=== PATIENT | male | born 1970 | race Caucasian/White ===

== ENCOUNTER 2017-11-27 11:20 | Emergency (ER) | payer BC, SELFPAY ==
[2017-11-27] VITALS (44 sets, daily range): BP systolic 125–146; BP diastolic 67–104; PULSE 53–77; RESP 16–18; TEMP 36.6; O2SAT 93–98
--- NOTE | 2017-11-27 12:25 | W.ED.GENAD ---
Discharge Plan Disposition Patient Disposition: HOME Condition: Stable Discharge Details Chief Complaint: Chest Pain Clinical Impression: Chest pain Primary Care Provider: Mayra Morris ED Provider: Kimberly Caldera Home Meds and New Rx's Prescriptions: Continue fexofenadine-pseudoephedrine [Raquel-D 24 Hour] 1 EACH tablet extended release 24 hr 1 tab PO DAILY RF: 0 ibuprofen 200 MG tablet 1 tab PO PRN RF: 0 No Action lorazepam 0.5 mg tablet 0.5 mg PO BID PRN (Reason: anxiety) Qty: 20 RF: 0 Discharge Instructions Instructions: Chest Pain (ED) Additional Instructions: Please return immediately to the emergency department if you develop any new or worsening symptoms or if you become otherwise concerned. It is extremely important that you make an appointment to be seen in follow-up for this visit this week by your primary care doctor. Referrals: Mayra Morris, POWER SYSTEM DISPATCHER [Primary Care Provider] - Discharge Data Discharge Date/Time-TO BE ENTERED AT DEPARTURE: 11/27/17 18:25 Medical Decision Making MDM Narrative Medical decision making narrative: Pawel Perrin is a 47-year-old man without history of major medical problems preventing to the emergency department with chest pain at rest, not worse with exertion. On exam patient is very well and nontoxic-appearing. He has a benign cardiopulmonary exam. Concern for ACS versus PE versus GERD versus MSK vs other. Exam/history not consistent with aortic etiology. Chest pain is atypical for ACS. Plan for EKG, chest x-ray, screening labs, telemetry. Will monitor and reassess. Labs nondiagnostic. EKG okay. Chest x-ray okay. Patient reports chest pain 1 out of 10, declines further medication at this time. Plan for repeat troponin repeat EKG.. Repeat EKG unchanged. 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 Atypical for ACS given that he exerts himself without symptoms. Lengthy discussion with patient regarding return to emergency department precautions and importance of outpatient follow-up with his PCP and for stress test. Patient is amenable to the plan. Medical Records Medical records reviewed: Yes I reviewed the patient's medical records. Imaging Data Radiologic Study: Attestation: I personally reviewed and interpreted this imaging study as follows: Radiologist's impression: PA AND LATERAL CHEST: Comparison 07/05/13. The heart is normal in size. The lungs are clear. The mediastinal structures and pleura appear intact. CONCLUSION: Normal chest. Lab Data Lab results reviewed: Yes I reviewed the patient's lab results. Laboratory Tests Range/Units 11/27/17 11/27/17 11/27/17 13:05 13:05 13:05 WBC (4.4-10.8) k/cumm 6.75 RBC (4.50-6.00) m/cumm 5.03 Hgb (13.5-17.5) g/dL 15.2 Hct (40.0-50.0) % 44.4 MCV (80-95) fL 88.3 MCH (27.0-33.0) pg 30.2 MCHC (32.0-36.0) g/dL 34.2 RDW (11.8-14.1) % 13.0 Plt Count (130-400) x1000/uL 224 MPV (8.0-11.0) fL 9.7 Immature Gran % 0.1 Neutrophils % 74.0 Lymphocytes % 16.0 Monocytes % 9.5 Eosinophils % 0.3 Basophils % 0.1 Absolute Neutrophils (1.2-6.7) k/cumm 4.99 Absolute Lymphocytes (1.2-3.4) k/cumm 1.08 L Absolute Monocytes (0.11-0.7) k/cumm 0.64 Absolute Eosinophils (0.0-0.7) k/cumm 0.02 Absolute Basophils (0.0-0.2) k/cumm 0.01 D-Dimer (<500) ng/mlFEU 180 Sodium (136-145) mmol/L 137 Potassium (3.5-5.1) mmol/L 4.0 Chloride (98-107) mmol/L 103 Carbon Dioxide (21.0-32.0) mmol/L 31.6 Anion Gap (3-11) mmol/L 2.4 L BUN (7-18) mg/dL 19 H Creatinine (0.70-1.30) mg/dL 1.01 Estimated GFR/1.73 m2 (mL/min/1.73m2) >= 60.00 Glucose (70-100) mg/dL 106 H Calcium (8.5-10.1) mg/dL 9.0 Total Bilirubin (0.2-1.0) mg/dL 0.7 AST (15-37) U/L 22 ALT (12-78) U/L 31 Alkaline Phosphatase (46-116) U/L 64 Troponin I (0.00-0.06) ng/mL < 0.02 Total Protein (6.4-8.2) g/dL 7.5 Albumin (3.4-5.0) g/dL 4.0 Range/Units 11/27/17 16:39 WBC (4.4-10.8) k/cumm RBC (4.50-6.00) m/cumm Hgb (13.5-17.5) g/dL Hct (40.0-50.0) % MCV (80-95) fL MCH (27.0-33.0) pg MCHC (32.0-36.0) g/dL RDW (11.8-14.1) % Plt Count (130-400) x1000/uL MPV (8.0-11.0) fL Immature Gran % Neutrophils % Lymphocytes % Monocytes % Eosinophils % Basophils % Absolute Neutrophils (1.2-6.7) k/cumm Absolute Lymphocytes (1.2-3.4) k/cumm Absolute Monocytes (0.11-0.7) k/cumm Absolute Eosinophils (0.0-0.7) k/cumm Absolute Basophils (0.0-0.2) k/cumm D-Dimer (<500) ng/mlFEU Sodium (136-145) mmol/L Potassium (3.5-5.1) mmol/L Chloride (98-107) mmol/L Carbon Dioxide (21.0-32.0) mmol/L Anion Gap (3-11) mmol/L BUN (7-18) mg/dL Creatinine (0.70-1.30) mg/dL Estimated GFR/1.73 m2 (mL/min/1.73m2) Glucose (70-100) mg/dL Calcium (8.5-10.1) mg/dL Total Bilirubin (0.2-1.0) mg/dL AST (15-37) U/L ALT (12-78) U/L Alkaline Phosphatase (46-116) U/L Troponin I (0.00-0.06) ng/mL < 0.02 Total Protein (6.4-8.2) g/dL Albumin (3.4-5.0) g/dL ECG Data Attestation: I personally reviewed and interpreted this ECG (s) as follows: Interpretation: EKG shows sinus bradycardia at 53 with normal axis, no STEMI, nondiagnostic EKG EKG shows sinus bradycardia at 57 with normal axis, no STEMI, nondiagnostic EKG HPI - General Adult General Mode of arrival: ambulatory. Date/Time Provider Initiated Documentation: 11/27/17 12:25. Limitations to Documentation: no limitations. Information obtained by: RN notes reviewed and old records reviewed. HPI Narrative: Pawel Perrin is a 47-year-old man with out history of major medical problems presenting to the emergency department with chest pain. Patient reports that over the past few days he has had intermittent sharp left-sided chest pain. Patient reports that pain has been somewhat migratory, and initially seemed to start on the right side of his chest and has also been in his central chest. Patient reports that he does have left-sided chest pain currently at a level of 2 out of 10 there is no radiation. He denies any associated symptoms: There is no shortness of breath, cough, fever, other pain, nausea/vomiting/diarrhea, sweating, weakness, numbness, tingling. He feels otherwise in his usual state of health. He reports that he is under significant stress at work. He notes that he rode his bicycle for 10 miles yesterday and did not experience any chest pain during the bike ride. Related Data Home Medications Medication Instructions Recorded Confirmed fexofenadine-pseudoephedrine 1 tab PO DAILY 07/05/13 11/29/17 [Raquel-D 24 Hour] ibuprofen 1 tab PO PRN 07/05/13 11/29/17 lorazepam 0.5 mg tablet 0.5 mg PO BID PRN #20 tab 11/29/17 11/29/17 Previous Rx's Medication Instructions Recorded lorazepam 0.5 mg tablet 0.5 mg PO BID PRN #20 tab 11/29/17 Allergies Allergy/AdvReac Type Severity Reaction Status Date / Time No Known Allergies Allergy Unverified 11/29/17 13:14 General Stated Complaint: Chest Pain LEOBARDO: 2 Review of Systems Review of Systems Constitutional: denies fevers Eyes: denies eye pain ENT: denies facial pain, dental pain, sore throat Cardiovascular: Reports chest pain Respiratory: denies SOB, cough GI: denies abdominal pain, vomiting, diarrhea : denies flank pain MSK: denies back pain, neck pain, arthralgias, myalgias Skin: denies rash Neuro: denies headaches, lightheadedness, weakness PFSH Family History Father Essential hypertension Hyperlipidemia Grandfather Essential hypertension Hyperlipidemia Grandmother Essential hypertension Hyperlipidemia Mother No problems noted. Social History adopted: No Smoking/Tobacco Use Status: Former Tobacco Use alcohol intake: current alcohol intake frequency: a few times a week Alcohol type: beer, wine, hard liquor and other substance use type: does not use Exam Narrative Exam Narrative: Constitutional: well and [id number], pleasant, conversing normally HENT: head atraumatic, normocephalic normal inspection, mucous membranes moist Eyes: conjunctiva normal, sclera normal, pupils 3mm b/l Neck: no stridor, normal ROM, trachea midline Chest: normal inspection Resp: normal work of breathing, LCTAB Cardio: normal rate, normal rhythm, no murmur appreciated. chest Nontender to palpation. GI: abdomen soft, non-tender, non-distended Back: normal inspection, no rash Skin: warm, dry, normal color, no rash Neuro: alert, not altered, grossly non-focal, normal tone Ext: no edema Psych: normal mood, normal affect, normal behavior Course Vital Signs Temperature 36.6 C 11/27/17 12:04 Pulse 57 L 11/27/17 12:04 Respiratory Rate 16 11/27/17 12:04 Blood Pressure 146/69 H 11/27/17 12:04 Pulse Oximetry 95 11/27/17 12:04 Temperature 36.6 C 11/27/17 12:04 Pulse 56 L 11/27/17 12:24 Respiratory Rate 16 11/27/17 12:24 Blood Pressure 140/80 11/27/17 12:24 Pulse Oximetry 95 11/27/17 12:04
--- NOTE | 2017-11-27 12:34 | DI.RAD_ITS ---
SYMPTOMS/DIAGNOSIS: CHEST PAIN PA AND LATERAL CHEST: Comparison 07/05/13. The heart is normal in size. The lungs are clear. The mediastinal structures and pleura appear intact. CONCLUSION: Normal chest.
[2017-11-27 13:15] LABS: Abs Immature Grans 0.01 k/cumm (0.0-0.09); Absolute Basophil Count 0.01 k/cumm (0.0-0.2); Absolute Eosinophil Count 0.02 k/cumm (0.0-0.7); Absolute Lymphocyte Count 1.08 k/cumm (1.2-3.4); Absolute Monocyte Count 0.64 k/cumm (0.11-0.7); Absolute Neutrophil Count 4.99 k/cumm (1.2-6.7); Basophils % 0.1; Eosinophils % 0.3; HCT 44.4 % (40.0-50.0); HGB 15.2 g/dL (13.5-17.5); Immature Grans % 0.1; Mean Corp. HGB Concentration 34.2 g/dL (32.0-36.0); Mean Corpuscular Hemoglobin 30.2 pg (27.0-33.0); Mean Corpuscular Volume 88.3 fL (80-95); Mean Platelet Volume 9.7 fL (8.0-11.0); Monocytes % 9.5; Platelet Count 224 x1000/uL (130-400); RBC 5.03 m/cumm (4.50-6.00); White Blood Cell Count 6.75 k/cumm (4.4-10.8)
[2017-11-27 13:33] LABS: ALT 31 U/L (12-78); AST 22 U/L (15-37); Alkaline Phosphatase 64 U/L (46-116); Anion Gap 2.4 mmol/L (3-11); BUN 19 mg/dL (7-18); Bilirubin, Total 0.7 mg/dL (0.2-1.0); CO2 31.6 mmol/L (21.0-32.0); CREATININE 1.01 mg/dL (0.70-1.30); Chloride 103 mmol/L (98-107); Glucose 106 mg/dL (70-100); Sodium 137 mmol/L (136-145); Total Protein 7.5 g/dL (6.4-8.2)
[2017-11-27 13:42] LABS: Troponin I < 0.02 ng/mL (0.00-0.06)
[2017-11-27 13:45] LABS: D-Dimer 180 ng/mlFEU (<500)
[2017-11-27 17:09] LABS: Troponin I < 0.02 ng/mL (0.00-0.06)
--- NOTE | 2017-11-28 09:33 | PDOC.ERCMPRO ---
Care Management Progress Note 11/28/17-Pt seen on 11/27/[address] for chest pain by Dr. Perez pabon. f/u this week referral has been sent to [facility] as Augustus is the pt's PCP. Stress Test was ordered, as well.
--- NOTE | 2017-12-04 18:21 | ED.GENADUL_ITS ---
Discharge Plan Disposition Patient Disposition: HOME Condition: Stable Discharge Details Chief Complaint: Chest Pain Clinical Impression: Chest pain Primary Care Provider: Mayra Morris ED Provider: Kimberly Caldera Home Meds and New Rx's Prescriptions: Continue fexofenadine-pseudoephedrine [Raquel-D 24 Hour] 1 EACH tablet extended release 24 hr 1 tab PO DAILY RF: 0 ibuprofen 200 MG tablet 1 tab PO PRN RF: 0 No Action lorazepam 0.5 mg tablet 0.5 mg PO BID PRN (Reason: anxiety) Qty: 20 RF: 0 Discharge Instructions Instructions: Chest Pain (ED) Additional Instructions: Please return immediately to the emergency department if you develop any new or worsening symptoms or if you become otherwise concerned. It is extremely important that you make an appointment to be seen in follow-up for this visit this week by your primary care doctor. Referrals: Mayra Morris, GRINDING WHEEL FACER [Primary Care Provider] - Discharge Data Discharge Date/Time-TO BE ENTERED AT DEPARTURE: 11/27/17 18:25 Medical Decision Making MDM Narrative Medical decision making narrative: Pawle Perrin is a 47-year-old man without history of major medical problems preventing to the emergency department with chest pain at rest, not worse with exertion. On exam patient is very well and nontoxic-appearing. He has a benign cardiopulmonary exam. Concern for ACS versus PE versus GERD versus MSK vs other. Exam/history not consistent with aortic etiology. Chest pain is atypical for ACS. Plan for EKG, chest x-ray, screening labs, telemetry. Will monitor and reassess. Labs nondiagnostic. EKG okay. Chest x-ray okay. Patient reports chest pain 1 out of 10, declines further medication at this time. Plan for repeat troponin repeat EKG.. Repeat EKG unchanged. 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 Atypical for ACS given that he exerts himself without symptoms. Lengthy discussion with patient regarding return to emergency department precautions and importance of outpatient follow-up with his PCP and for stress test. Patient is amenable to the plan. Medical Records Medical records reviewed: Yes I reviewed the patient's medical records. Imaging Data Radiologic Study: Attestation: I personally reviewed and interpreted this imaging study as follows: Radiologist's impression: PA AND LATERAL CHEST: Comparison 07/05/13. The heart is normal in size. The lungs are clear. The mediastinal structures and pleura appear intact. CONCLUSION: Normal chest. Lab Data Lab results reviewed: Yes I reviewed the patient's lab results. Laboratory Tests Range/Units 11/27/17 11/27/17 11/27/17 13:05 13:05 13:05 WBC (4.4-10.8) k/cumm 6.75 RBC (4.50-6.00) m/cumm 5.03 Hgb (13.5-17.5) g/dL 15.2 Hct (40.0-50.0) % 44.4 MCV (80-95) fL 88.3 MCH (27.0-33.0) pg 30.2 MCHC (32.0-36.0) g/dL 34.2 RDW (11.8-14.1) % 13.0 Plt Count (130-400) x1000/uL 224 MPV (8.0-11.0) fL 9.7 Immature Gran % 0.1 Neutrophils % 74.0 Lymphocytes % 16.0 Monocytes % 9.5 Eosinophils % 0.3 Basophils % 0.1 Absolute Neutrophils (1.2-6.7) k/cumm 4.99 Absolute Lymphocytes (1.2-3.4) k/cumm 1.08 L Absolute Monocytes (0.11-0.7) k/cumm 0.64 Absolute Eosinophils (0.0-0.7) k/cumm 0.02 Absolute Basophils (0.0-0.2) k/cumm 0.01 D-Dimer (<500) ng/mlFEU 180 Sodium (136-145) mmol/L 137 Potassium (3.5-5.1) mmol/L 4.0 Chloride (98-107) mmol/L 103 Carbon Dioxide (21.0-32.0) mmol/L 31.6 Anion Gap (3-11) mmol/L 2.4 L BUN (7-18) mg/dL 19 H Creatinine (0.70-1.30) mg/dL 1.01 Estimated GFR/1.73 m2 (mL/min/1.73m2) >= 60.00 Glucose (70-100) mg/dL 106 H Calcium (8.5-10.1) mg/dL 9.0 Total Bilirubin (0.2-1.0) mg/dL 0.7 AST (15-37) U/L 22 ALT (12-78) U/L 31 Alkaline Phosphatase (46-116) U/L 64 Troponin I (0.00-0.06) ng/mL < 0.02 Total Protein (6.4-8.2) g/dL 7.5 Albumin (3.4-5.0) g/dL 4.0 Range/Units 11/27/17 16:39 WBC (4.4-10.8) k/cumm RBC (4.50-6.00) m/cumm Hgb (13.5-17.5) g/dL Hct (40.0-50.0) % MCV (80-95) fL MCH (27.0-33.0) pg MCHC (32.0-36.0) g/dL RDW (11.8-14.1) % Plt Count (130-400) x1000/uL MPV (8.0-11.0) fL Immature Gran % Neutrophils % Lymphocytes % Monocytes % Eosinophils % Basophils % Absolute Neutrophils (1.2-6.7) k/cumm Absolute Lymphocytes (1.2-3.4) k/cumm Absolute Monocytes (0.11-0.7) k/cumm Absolute Eosinophils (0.0-0.7) k/cumm Absolute Basophils (0.0-0.2) k/cumm D-Dimer (<500) ng/mlFEU Sodium (136-145) mmol/L Potassium (3.5-5.1) mmol/L Chloride (98-107) mmol/L Carbon Dioxide (21.0-32.0) mmol/L Anion Gap (3-11) mmol/L BUN (7-18) mg/dL Creatinine (0.70-1.30) mg/dL Estimated GFR/1.73 m2 (mL/min/1.73m2) Glucose (70-100) mg/dL Calcium (8.5-10.1) mg/dL Total Bilirubin (0.2-1.0) mg/dL AST (15-37) U/L ALT (12-78) U/L Alkaline Phosphatase (46-116) U/L Troponin I (0.00-0.06) ng/mL < 0.02 Total Protein (6.4-8.2) g/dL Albumin (3.4-5.0) g/dL ECG Data Attestation: I personally reviewed and interpreted this ECG (s) as follows: Interpretation: EKG shows sinus bradycardia at 53 with normal axis, no STEMI, nondiagnostic EKG EKG shows sinus bradycardia at 57 with normal axis, no STEMI, nondiagnostic EKG HPI - General Adult General Mode of arrival: ambulatory . Date/Time Provider Initiated Documentation: 11/27/17 12:25 . Limitations to Documentation: no limitations . Information obtained by: RN notes reviewed and old records reviewed . HPI Narrative: Pawel Perrin is a 47-year-old man with out history of major medical problems presenting to the emergency department with chest pain. Patient reports that over the past few days he has had intermittent sharp left- sided chest pain. Patient reports that pain has been somewhat migratory, and initially seemed to start on the right side of his chest and has also been in his central chest. Patient reports that he does have left-sided chest pain currently at a level of 2 out of 10 there is no radiation. He denies any associated symptoms: There is no shortness of breath, cough, fever, other pain, nausea/vomiting/diarrhea, sweating, weakness, numbness, tingling. He feels otherwise in his usual state of health. He reports that he is under significant stress at work. He notes that he rode his bicycle for 10 miles yesterday and did not experience any chest pain during the bike ride. Related Data Home Medications Medication Instructions Recorded Confirmed fexofenadine-pseudoephedrine 1 tab PO DAILY 07/05/13 11/29/17 [Raquel-D 24 Hour] ibuprofen 1 tab PO PRN 07/05/13 11/29/17 lorazepam 0.5 mg tablet 0.5 mg PO BID PRN #20 tab 11/29/17 11/29/17 Previous Rx's Medication Instructions Recorded lorazepam 0.5 mg tablet 0.5 mg PO BID PRN #20 tab 11/29/17 Allergies Allergy/AdvReac Type Severity Reaction Status Date / Time No Known Allergies Allergy Unverified 11/29/17 13:14 General Stated Complaint: Chest Pain LEOBARDO: 2 Review of Systems Review of Systems Constitutional: denies fevers Eyes: denies eye pain ENT: denies facial pain, dental pain, sore throat Cardiovascular: Reports chest pain Respiratory: denies SOB, cough GI: denies abdominal pain, vomiting, diarrhea : denies flank pain MSK: denies back pain, neck pain, arthralgias, myalgias Skin: denies rash Neuro: denies headaches, lightheadedness, weakness PFSH Family History Father Essential hypertension Hyperlipidemia Grandfather Essential hypertension Hyperlipidemia Grandmother Essential hypertension Hyperlipidemia Mother No problems noted. Social History adopted: No Smoking/Tobacco Use Status: Former Tobacco Use alcohol intake: current alcohol intake frequency: a few times a week Alcohol type: beer, wine, hard liquor and other substance use type: does not use Exam Narrative Exam Narrative: Constitutional: well and [id number], pleasant, conversing normally HENT: head atraumatic, normocephalic normal inspection, mucous membranes moist Eyes: conjunctiva normal, sclera normal, pupils 3mm b/l Neck: no stridor, normal ROM, trachea midline Chest: normal inspection Resp: normal work of breathing, LCTAB Cardio: normal rate, normal rhythm, no murmur appreciated. chest Nontender to palpation. GI: abdomen soft, non-tender, non-distended Back: normal inspection, no rash Skin: warm, dry, normal color, no rash Neuro: alert, not altered, grossly non-focal, normal tone Ext: no edema Psych: normal mood, normal affect, normal behavior Course Vital Signs Temperature 36.6 C 11/27/17 12:04 Pulse 57 L 11/27/17 12:04 Respiratory Rate 16 11/27/17 12:04 Blood Pressure 146/69 H 11/27/17 12:04 Pulse Oximetry 95 11/27/17 12:04 Temperature 36.6 C 11/27/17 12:04 Pulse 56 L 11/27/17 12:24 Respiratory Rate 16 11/27/17 12:24 Blood Pressure 140/80 11/27/17 12:24 Pulse Oximetry 95 11/27/17 12:04
== END 2017-11-27 18:25 | disposition home or self-care (01) ==
PROVIDERS: Emergency Provider Student in an Organized Health Care Education/Training Program; PCP Nurse Practitioner
DX: R07.9 Chest pain, unspecified (principal)
CPT/HCPCS: 36415; 80053; 93005; 99284; 71046; 84484; 85025; 85379; 93010

== ENCOUNTER 2017-12-01 00:07 | Outpatient (CLI) | payer BC, SELFPAY ==
--- NOTE | 2017-12-01 09:30 | ETT_ITS ---
*[facility]* *[facility]* [address] [place] [address] Stress Electrocardiography Maxwell protocol Date of study: 12/01/2017 *PATIENT PRESENTATION* Height: 180.3cm (71in) Blood Pressure: Weight: 102.3kg (225lb) BSA: 2.29m^2 Ordering physician: Lisandro Caldera Impressions: Normal study after maximal exercise. Summary: 1. Stress ECG conclusions: The stress ECG is negative. 2. Stress: The target heart rate was achieved. There is a normal resting blood pressure with a hypertensive response to stress. Exercise capacity is above normal for age. Indication: R07.9. History: Patient's presenting symptoms: asymptomatic. Patient's presenting symptoms: asymptomatic. REASON FOR VISIT: PATIENT PRESENTED TO EMERGENCY ROOM ON 11/27/17 WITH 3/10 DULL LEFT SIDED CHEST PAIN, OCCASIONALLY RADIATING TO THE RIGHT. CHEST PAIN HAD BEEN CONSTANT OVER THREE DAYS BEFORE PRESENTING TO THE EMERGENCY ROOM, AND HAS BEEN OCCURING INTERMITTENLY OVER THE PAST WEEK. LAST EPISODE OF CHEST PAIN ON MONDAY. PATIENT REPORTS THAT TAKING TUMS SEEMS TO HELP WITH THE PAIN. PATIENT HAS HAD SEVERE STRESS RECENTLY DUE TO HIS JOB. PAST MEDICAL HISTORY: NO MEDICAL HISTORY. FAMILY HISTORY: FATHER - HYPERTENSION. SMOKING STATUS: 1PPD HISTORY FOR 15 YEARS. QUIT IN 2000. 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 ALLERGIES: NO KNOWN ALLERGIES. MEDICATIONS: FEXOFENADINE-PSEUDOEPHEDRINE 1 TAB, DAILY. LORAZEPAM 0.5 MG, BID PRN. Protocol: Maxwell protocol. Baseline ECG: SINUS RHYTHM. HEART RATE 64 BPM. Stress protocol: + +---+ + !Stage !HR !BP (mmHg) ! + +---+ + !Baseline supine !64 !144/82 (103) ! + +---+ + !Baseline standing !74 !138/88 (105) ! + +---+ + !Stage I; 1.7mph, 10degrees; 3 min !92 !182/94 (123) ! + +---+ + !Stage II; 2.5mph, 12degrees; 3 min !105!210/114 (146)! + +---+ + !Stage III; 3.4mph, 14degrees; 3 min!121!212/120 (151)! + +---+ + !Stage IV; 4.2mph, 16degrees; 3 min !136!220/128 (159)! + +---+ + !Stage V; 5mph, 18degrees; 3 min !158!230/128 (162)! + +---+ + !Peak stress !160! ! + +---+ + !Recovery; 1 min !141!138/62 (87) ! + +---+ + !Recovery; 3 min !109!190/74 (113) ! + +---+ + !Recovery; 6 min !92 !132/70 (91) ! + +---+ + * Stress results: Maximal heart rate during stress was 160bpm (94% of maximal predicted heart rate). The maximal predicted heart rate was 171bpm. The target heart rate was achieved. There is a normal resting blood pressure with a hypertensive response to stress. The rate-pressure product for the peak heart rate and blood pressure was 99469hw Hg/min. Exercise capacity is above normal for age. Stress ECG: TREADMILL PORTION OF EXERCISE STRESS TEST ENDED IN 15MIN 10SEC DUE TO PATIENT FATIGUE. APPROPRIATE HEART RATE AND BLOOD PRESSURE RESPONSE TO EXERCISE. INITIAL HYPOTENSIVE RESPONSE TO CESSATION OF EXERCISE, ASYMPTOMATIC. MAX HEART RATE 160BPM, 93% OF TARGET. APPROXIMATE METS ACHIEVED 15.01. NO ANGINA REPORTED. NO ECTOPY NOTED. UPWARD SLOPING ST SEGMENT DEPRESSION NOTED IN LEADS V3 AND V4 STARTING IN MINUTE THREE OF EXERCISE, RESOLVING WITH RECOVERY. ABOVE AVERAGE FUNCTIONAL CAPACITY. The stress ECG is negative. Study data: Damion Barrera MD supervised and was readily available during the procedure. This study was interpreted by [facility]. Study status: Routine. Consent: The risks, benefits, and alternatives to the procedure were explained to the patient and informed consent was obtained. Procedure: Initial setup. A baseline ECG was recorded. Surface ECG leads and manual cuff blood pressure measurements were monitored. Heart sounds: Normal. Lung sounds: Normal. Treadmill exercise testing was performed using the Maxwell protocol. Study completion: The patient tolerated the procedure well and was discharged from the lab. Discharge: The patient left the laboratory in stable condition. Birthdate: Patient birthdate: 1970. Sex: Gender: male. Study date: Study date: 12/01/2017. Study time: 09:30 AM. Signature Documentation: The Stress ECG portion of this study was interpreted by Damion Barrera MD. Electronically signed by Damion Barrera 12/01/2017 16:24
== END 2017-12-01 00:27 ==
PROVIDERS: PCP Nurse Practitioner; Visit Provider Student in an Organized Health Care Education/Training Program
DX: R07.9 Chest pain, unspecified (principal); Z87.891 Personal history of nicotine dependence
CPT/HCPCS: 93017

== ENCOUNTER 2017-12-20 01:12 | Outpatient (CLI) | payer BC, SELFPAY ==
[2017-12-20 10:03] LABS: Cholesterol 173 mg/dL (50-200); HDL Cholesterol 67 mg/dL (40-60); LDL CHOLESTEROL 67 mg/dL (<100); Triglyceride 115 mg/dL (30-150)
== END 2017-12-20 01:32 ==
PROVIDERS: PCP Nurse Practitioner; Visit Provider Nurse Practitioner
DX: Z13.220 Encounter for screening for lipoid disorders (principal)
CPT/HCPCS: 36415; 80061; 83721

== ENCOUNTER 2020-01-23 08:35 | Outpatient (CLI) | payer SELFPAY ==
[2020-01-27 13:57] LABS: Patient Race White; SARS-CoV-2 RNA Undetected (Undetected); SARS-CoV-2 Specimen Source Nasal
== END 2020-01-23 08:55 ==
PROVIDERS: PCP Nurse Practitioner; Visit Provider Nurse Practitioner
DX: R19.7 Diarrhea, unspecified (principal); Z20.828 Contact with and (suspected) exposure to other viral communicable diseases
CPT/HCPCS: U0003

== ENCOUNTER 2020-05-26 02:47 | Outpatient (CLI) | payer OTHER, SELFPAY ==
[2020-05-26 07:39] LABS: HCT 44.6 % (40.0-50.0); HGB 14.9 g/dL (13.5-17.5); MCHC 33.4 % (32.0-36.0); MCV 89.7 fL (80-95); MPV 9.7 fL (8.0-11.0); Platelet Count 225 10^3/uL (130-400); RBC 4.97 10^6/uL (4.36-5.78); RDW 12.3 % (11.8-14.1); RDW-SD 40.5 fL; WBC 4.65 10^3/uL (4.4-10.8)
[2020-05-26 09:40] LABS: ALT 31 U/L (16-63); AST 22 U/L (15-37); Alkaline Phosphatase 67 U/L (46-116); Anion Gap 9.5 mmol/L (3-11); BUN 19 mg/dL (7-18); Bilirubin, Total 0.5 mg/dL (0.2-1.0); CO2 26.5 mmol/L (21.0-32.0); Calculated LDL 150 mg/dL (<100); Chloride 104 mmol/L (98-107); Cholesterol 266 mg/dL (<200); Glucose 101 mg/dL (74-106); HDL Cholesterol 53 mg/dL (40-60); Potassium 4.5 mmol/L (3.5-5.1); Sodium 140 mmol/L (136-145); Total Protein 7.2 g/dL (6.4-8.2); Triglyceride 315 mg/dL (<150)
== END 2020-05-26 02:48 | disposition home or self-care (01) ==
LOC: LBO 02:47
PROVIDERS: PCP Nurse Practitioner; Visit Provider Nurse Practitioner
DX: I10 Essential (primary) hypertension (principal); Z13.220 Encounter for screening for lipoid disorders
CPT/HCPCS: 36415; 80053; 80061; 85027

== ENCOUNTER 2021-01-22 09:24 | Emergency (ER) | payer OTHER, SELFPAY ==
[2021-01-22] VITALS (39 sets, daily range): BP systolic 134–158; BP diastolic 70–93; PULSE 52–67; RESP 16–25; TEMP 36.4; O2SAT 96–100
--- NOTE | 2021-01-22 09:15 | RT.EKG_ITS ---
APPROVED REPORT Exam: Resting ECG Reason for Exam: chest pain Patient Location: E HR:67 bpm ECG Measurements Heart Rate 67 AXIS FL 207 P 56 QRSd 111 QRS 37 QT 413 T 21 QTc 435 Conclusion Sinus rhythm...normal P axis, V-rate 60- 99 Borderline prolonged FL interval...FL >202, V-rate 50- 90 sinus rhythm at 67, normal axis, no acute ischemic changes, no STEMI, nondiagnostic EKG
[2021-01-22 10:45] LABS: Abs Immature Grans 0.01 10^3/uL (0.0-0.06); Absolute Basophil Count 0.02 10^3/uL (0.0-0.2); Absolute Eosinophil Count 0.03 10^3/uL (0.0-0.7); Absolute Lymphocyte Count 1.84 10^3/uL (1.2-3.4); Absolute Monocyte Count 0.71 10^3/uL (0.1-0.8); Absolute Neutrophil Count 3.72 10^3/uL (1.2-6.7); Basophils % 0.3; Eosinophils % 0.5; HCT 45.2 % (40.0-50.0); HGB 15.3 g/dL (13.5-17.5); Immature Grans % 0.2; Lymphocytes % 29.1; MCH 29.9 pg (27.0-33.0); MCHC 33.8 % (32.0-36.0); MCV 88.5 fL (80-95); MPV 10.3 fL (8.0-11.0); Monocytes % 11.2; Neutrophils % 58.7; Nucleated RBC 0 %; Platelet Count 251 10^3/uL (130-400); RBC 5.11 10^6/uL (4.36-5.78); RDW 12.2 % (11.8-14.1); RDW-SD 39.8 fL; WBC 6.33 10^3/uL (4.4-10.8)
--- NOTE | 2021-01-22 10:59 | DI.RAD_ITS ---
Exam(s) XR PORTABLE CHEST AP EXAM: XR PORTABLE CHEST AP CLINICAL HISTORY: chest pain. TECHNIQUE: 2D digital imaging was performed. COMPARISON: CR XR CHEST 2V PA LATERAL from 11/27/2017 FINDINGS: LUNGS: Clear. No pleural abnormality seen. HEART: Normal. MEDIASTINUM: Normal. OTHER FINDINGS: None. IMPRESSION: No acute pulmonary findings. DATA REPOSITORY: RADIATION DOSE DELIVERED: Total DLP
[2021-01-22 11:06] LABS: Calcium 8.9 mg/dL (8.5-10.1); Glucose 101 mg/dL (74-106)
[2021-01-22 11:07] LABS: Albumin 4.3 g/dL (3.4-5.0); Alkaline Phosphatase 77 U/L (46-116); Anion Gap 5.4 mmol/L (3-11); BUN 21 mg/dL (7-18); Bilirubin, Total 0.5 mg/dL (0.2-1.0); CO2 29.6 mmol/L (21.0-32.0); Chloride 104 mmol/L (98-107); Sodium 139 mmol/L (136-145); Total Protein 7.9 g/dL (6.4-8.2)
[2021-01-22 11:08] LABS: ALT 30 U/L (16-63); AST 29 U/L (15-37); Magnesium 2.4 mg/dL (1.8-2.4); Troponin I < 0.05 ng/mL (<0.06)
[2021-01-22 11:43] LABS: D-Dimer 263 ng/mlFEU (<500)
--- NOTE | 2021-01-22 12:30 | RT.EKG_ITS ---
APPROVED REPORT Exam: Resting ECG Reason for Exam: Chest pain Patient Location: E HR:55 bpm ECG Measurements Heart Rate 55 AXIS FL 214 P 67 QRSd 110 QRS 43 QT 432 T 19 QTc 413 Conclusion Sinus bradycardia...rate< 60 Prolonged FL interval...FL >210, V-rate 50- 90 sinus bradycardia at 55, 1st degree block, normal axis, no acute ischemic changes, no STEMI, nondiagn ostic EKG
[2021-01-22 13:25] LABS: Troponin I < 0.05 ng/mL (<0.06)
--- NOTE | 2021-01-22 14:04 | NUR.NOTE ---
Nursing Note: Referral faxed to Radiology for exercise stress test for chest pain. Referral faxed to [facility] Cardiology for chest pain in 1 to 2 weeks. Kelli Nathan
--- NOTE | 2021-01-22 16:15 | ED.GENADUL_ITS ---
Discharge Plan Disposition Patient Disposition: HOME Condition: Stable Discharge Details Clinical Impression: Chest pain Primary Care Provider: Mayra Morris ED Provider: Kimberly Caldera Home Meds and New Rx's Prescriptions: Continued ibuprofen 200 MG tablet 1 tab PO PRN RF: 0 No Action atorvastatin 10 mg tablet 10 mg PO DAILY Qty: 90 RF: 1 Discharge Instructions Instructions: Chest Pain (ED) Additional Instructions: Please return immediately to the emergency department if you develop any new or worsening symptoms, if your condition does not improve as expected, or if you become otherwise concerned. It is extremely important that you call soon as possible to make an appointment to be seen in follow-up for this visit by your primary care doctor and a laborer mine as we discussed. It is also extremely important that you undego stress testing as we discussed, you will be called to schedule this. Referrals: Yamileth Streeter MD [ [facility] STAFF PHYSICIAN] - Mayra Morris NP [Primary Care Provider] - Discharge Data Discharge Date/Time-TO BE ENTERED AT DEPARTURE: 01/22/21 14:02 Medical Decision Making Pawel Perrin is a 51 y/o man with h/o HLD who presented to the emergency department with intermittent left chest pain over the past few days, non- exertional. On exam Pt is well and non-toxic appearing. Benign cardiopulmonary exam. Normal examination of the left shoulder and left arm. Concern for possible ACS vs msk pain vs other, doubt PE. Exam/hx at this time not c/w acute aortic pathology, septic arthritis, UE DVT, acute emergent intra-abdominal process. EKG non-diagnostic. Plan for screening labs, IV placement, telemetry, CXR. Will monitor and reassess. Plan for repeat trop and ekg if initial w/u neg. Labs reviewed. Normal WBC, trop neg, d-dimer neg. CXR negative for acute process. Pt states that he is pain free and feels well. Repeat trop neg and repeat EKG shows no major change. Pt low risk by HEART score. Plan for outpt stress test, outpt f/u. Stress test ordered by me. I had a lengthy discussion with Patient regarding return to emergency department precautions, home care, and importance of outpatient follow-up. Pt verbalizes understanding of the plan and is amenable. Patient discharged to home with clear plan for outpatient follow-up. All questions were answered. Disposition decision was made weighing the risks and benefits of hospitalization versus outpatient treatment, the risk for further decompensation, and the patient's wishes. Medical Records Medical records reviewed: Yes I reviewed the patient's medical records. Imaging Data Radiologic Study: Attestation: I personally reviewed and interpreted this imaging study as follows: Radiologist's impression: EXAM: XR PORTABLE CHEST AP CLINICAL HISTORY: chest pain. TECHNIQUE: 2D digital imaging was performed. COMPARISON: CR XR CHEST 2V PA LATERAL from 11/27/2017 FINDINGS: LUNGS: Clear. No pleural abnormality seen. HEART: Normal. MEDIASTINUM: Normal. OTHER FINDINGS: None. IMPRESSION: No acute pulmonary findings. Lab Data Lab results reviewed: Yes I reviewed the patient's lab results. Labs: Laboratory Tests Range/Units 01/22/21 01/22/21 01/22/21 09:34 09:34 09:34 WBC (4.4-10.8) 10^3/uL 6.33 RBC (4.36-5.78) 10^6/uL 5.11 Hgb (13.5-17.5) g/dL 15.3 Hct (40.0-50.0) % 45.2 MCV (80-95) fL 88.5 MCH (27.0-33.0) pg 29.9 MCHC (32.0-36.0) % 33.8 RDW (11.8-14.1) % 12.2 Plt Count (130-400) 10^3/uL 251 MPV (8.0-11.0) fL 10.3 Immature Gran % 0.2 Neutrophils % 58.7 Lymphocytes % 29.1 Monocytes % 11.2 Eosinophils % 0.5 Basophils % 0.3 Nucleated RBC % % 0 Absolute Neutrophils (1.2-6.7) 10^3/uL 3.72 Absolute Lymphocytes (1.2-3.4) 10^3/uL 1.84 Absolute Monocytes (0.1-0.8) 10^3/uL 0.71 Absolute Eosinophils (0.0-0.7) 10^3/uL 0.03 Absolute Basophils (0.0-0.2) 10^3/uL 0.02 D-Dimer (<500) ng/mlFEU 263 Sodium (136-145) mmol/L 139 Potassium (3.5-5.1) mmol/L 4.0 Chloride (98-107) mmol/L 104 Carbon Dioxide (21.0-32.0) mmol/L 29.6 Anion Gap (3-11) mmol/L 5.4 BUN (7-18) mg/dL 21 H Creatinine (0.70-1.30) mg/dL 1.0 Estimated GFR/1.73 m2 (mL/min/1.73m2) >= 60.00 Glucose (74-106) mg/dL 101 Calcium (8.5-10.1) mg/dL 8.9 Magnesium (1.8-2.4) mg/dL 2.4 Total Bilirubin (0.2-1.0) mg/dL 0.5 AST (15-37) U/L 29 ALT (16-63) U/L 30 Alkaline Phosphatase (46-116) U/L 77 Troponin I (<0.06) ng/mL < 0.05 Total Protein (6.4-8.2) g/dL 7.9 Albumin (3.4-5.0) g/dL 4.3 Range/Units 01/22/21 12:40 WBC (4.4-10.8) 10^3/uL RBC (4.36-5.78) 10^6/uL Hgb (13.5-17.5) g/dL Hct (40.0-50.0) % MCV (80-95) fL MCH (27.0-33.0) pg MCHC (32.0-36.0) % RDW (11.8-14.1) % Plt Count (130-400) 10^3/uL MPV (8.0-11.0) fL Immature Gran % Neutrophils % Lymphocytes % Monocytes % Eosinophils % Basophils % Nucleated RBC % % Absolute Neutrophils (1.2-6.7) 10^3/uL Absolute Lymphocytes (1.2-3.4) 10^3/uL Absolute Monocytes (0.1-0.8) 10^3/uL Absolute Eosinophils (0.0-0.7) 10^3/uL Absolute Basophils (0.0-0.2) 10^3/uL D-Dimer (<500) ng/mlFEU Sodium (136-145) mmol/L Potassium (3.5-5.1) mmol/L Chloride (98-107) mmol/L Carbon Dioxide (21.0-32.0) mmol/L Anion Gap (3-11) mmol/L BUN (7-18) mg/dL Creatinine (0.70-1.30) mg/dL Estimated GFR/1.73 m2 (mL/min/1.73m2) Glucose (74-106) mg/dL Calcium (8.5-10.1) mg/dL Magnesium (1.8-2.4) mg/dL Total Bilirubin (0.2-1.0) mg/dL AST (15-37) U/L ALT (16-63) U/L Alkaline Phosphatase (46-116) U/L Troponin I (<0.06) ng/mL < 0.05 Total Protein (6.4-8.2) g/dL Albumin (3.4-5.0) g/dL ECG Data Attestation: I personally reviewed and interpreted this ECG (s) as follows: Interpretation: EKG shows normal sinus rhythm at 67, borderline first-degree block, normal axis, no acute ischemic changes, no STEMI, nondiagnostic EKG EKG shows sinus bradycardia at 55, first-degree block, normal axis, no acute ischemic changes, no STEMI, nondiagnostic EKG HPI General Mode of arrival: ambulatory . Date/Time Provider Initiated Documentation: 01/22/21 10:01 . Limitations to Documentation: no limitations . Information obtained by: patient, RN notes reviewed and old records reviewed . HPI Narrative: Pawel Perrin is a 51 y/o man with h/o HLD presenting to the emergency department with chest pain. Pt reports that he has had dull left upper chest pain radiating into left shoulder intermittently over the past 2-3 days. Pt reports that he is very active, uses [employer] and rowing machine on daily basis in addition to weight lifting, has continued to exercise since pain began, has had no chest pain during exercise. No recent trauma, no known inciting fac tors, non-pleuritic, non-positional. No change with left arm movement. Pt reports that as he had history of HLD he felt he should get checked. Rates current pain 1 out of 10. He denies any other pain, cough, SOB, vomiting, diarrhea, numbness, weakness, rash, swelling. Pt reports that he feels otherwise in his usual state of health. Has been eating and drinking as usual. Related Data Home Medications Medication Instructions Recorded Confirmed ibuprofen 1 tab PO PRN 07/05/13 01/22/21 atorvastatin 10 mg tablet 10 mg PO DAILY #90 tab 01/27/21 Previous Rx's Medication Instructions Recorded atorvastatin 10 mg tablet 10 mg PO DAILY #90 tab 01/27/21 Allergies Allergy/AdvReac Type Severity Reaction Status Date / Time No Known Allergies Allergy Unverified 01/22/21 09:36 General Stated Complaint: Chest Pain LEOBARDO: 2 Review of Systems Narrative: Constitutional: denies fevers Eyes: denies eye pain ENT: denies ear pain, dental pain, sore throat Cardiovascular: denies edema, reports chest pain Respiratory: denies SOB, cough GI: denies abdominal pain, vomiting, diarrhea : denies flank pain MSK: denies back pain, neck pain, arthralgias, myalgias Skin: denies rash Neuro: denies headaches, numbness, weakness [facility] Active Problem List (Updated 01/22/21 @ 13:50 by Kimberly Caldera MD) Chest pain (Acute) Abnormal auditory perception (Acute) Sensorineural hearing loss (SNHL) of left ear with unrestricted hearing of right ear (Acute) Tinnitus (Acute) Hyperlipidemia (Acute) Impacted cerumen of left ear (Acute) Elevated blood pressure reading in office with diagnosis of hypertension (Acute) Screening for cholesterol level (Acute) Travel within last 14 days (Acute) Diarrhea (Acute) Family History Father Essential hypertension Hyperlipidemia Grandfather Essential hypertension Hyperlipidemia Grandmother Essential hypertension Hyperlipidemia Mother No problems noted. Social History Smoking/Tobacco Use Status: Former Tobacco Use Tobacco: How many years used: 15 Smoking risk assessment performed?: Yes Alcohol Intake: current Alcohol Intake frequency: a few times a week Alcohol type: beer, wine, hard liquor and other Drug use: Never Substance use type: does not use Adopted: No Household members: spouse Housing: house Pets and animals: Yes Pets and animals: dog(s) Do you think of yourself as: straight/heterosexual Current gender identity: male What is your relationship status?: Panel score (0-1 are the most socially isolated patients): 1 What type of physical activity do you participate in: regular exercise, weight lifting and resistance training Duration: 45-60 minutes/day Frequency: 5-6 times per week Do you feel safe at home: Yes Exam Narrative Exam Narrative: Constitutional: well and [id number], pleasant, conversing normally HENT: head atraumatic/normocephalic/normal inspection, mucous membranes moist Eyes: conjunctiva normal, sclera normal, pupils 3mm b/l Neck: no stridor, normal ROM, trachea midline Chest: normal inspection, no TTP of the left chest Resp: normal work of breathing, LCTAB Cardio: normal rate, normal rhythm, no murmur appreciated GI: abdomen soft, non-tender, non-distended Back: normal inspection, no rash Skin: warm, dry, normal color, no rash Neuro: alert, not altered, grossly non-focal, normal tone Ext: no edema, no posterior calf TTP, no TTP of the left shoulder, full painless ROM left shoulder, radial pulses intact and symmetric Psych: normal mood, normal affect, normal behavior Course Vital Signs Vital signs: Vital Signs Temperature 36.4 C L 01/22/21 09:32 Pulse 64 01/22/21 09:32 Respiratory Rate 16 01/22/21 09:32 Pulse Oximetry 97 01/22/21 09:32 Temperature 36.4 C L 01/22/21 09:32 Temperature Source Skin 01/22/21 09:32 Pulse 53 L 01/22/21 13:31 Pulse 54 L 01/22/21 13:50 Respiratory Rate 23 01/22/21 13:50 Respiratory Effort 01/22/21 09:37 Respiratory Depth Normal 01/22/21 09:37 Respiratory Pattern Normal 01/22/21 09:37 Blood Pressure 134/76 01/22/21 13:31 Blood Pressure Mean 90 01/22/21 13:31 Blood Pressure Position Supine 01/22/21 09:32 Pulse Oximetry 98 01/22/21 13:50 Oxygen Delivery Method Room Air 01/22/21 09:32 Oxygen Flow Rate 0 01/22/21 09:32 Pain Level 1 01/22/21 09:32 Lab/Test Results Lab/Test Results: Laboratory Tests Range/Units 01/22/21 01/22/21 01/22/21 09:34 09:34 09:34 WBC (4.4-10.8) 10^3/uL 6.33 RBC (4.36-5.78) 10^6/uL 5.11 Hgb (13.5-17.5) g/dL 15.3 Hct (40.0-50.0) % 45.2 MCV (80-95) fL 88.5 MCH (27.0-33.0) pg 29.9 MCHC (32.0-36.0) % 33.8 RDW (11.8-14.1) % 12.2 Plt Count (130-400) 10^3/uL 251 MPV (8.0-11.0) fL 10.3 Immature Gran % 0.2 Neutrophils % 58.7 Lymphocytes % 29.1 Monocytes % 11.2 Eosinophils % 0.5 Basophils % 0.3 Nucleated RBC % % 0 Absolute Neutrophils (1.2-6.7) 10^3/uL 3.72 Absolute Lymphocytes (1.2-3.4) 10^3/uL 1.84 Absolute Monocytes (0.1-0.8) 10^3/uL 0.71 Absolute Eosinophils (0.0-0.7) 10^3/uL 0.03 Absolute Basophils (0.0-0.2) 10^3/uL 0.02 D-Dimer (<500) ng/mlFEU 263 Sodium (136-145) mmol/L 139 Potassium (3.5-5.1) mmol/L 4.0 Chloride (98-107) mmol/L 104 Carbon Dioxide (21.0-32.0) mmol/L 29.6 Anion Gap (3-11) mmol/L 5.4 BUN (7-18) mg/dL 21 H Creatinine (0.70-1.30) mg/dL 1.0 Estimated GFR/1.73 m2 (mL/min/1.73m2) >= 60.00 Glucose (74-106) mg/dL 101 Calcium (8.5-10.1) mg/dL 8.9 Magnesium (1.8-2.4) mg/dL 2.4 Total Bilirubin (0.2-1.0) mg/dL 0.5 AST (15-37) U/L 29 ALT (16-63) U/L 30 Alkaline Phosphatase (46-116) U/L 77 Troponin I (<0.06) ng/mL < 0.05 Total Protein (6.4-8.2) g/dL 7.9 Albumin (3.4-5.0) g/dL 4.3 Range/Units 01/22/21 12:40 WBC (4.4-10.8) 10^3/uL RBC (4.36-5.78) 10^6/uL Hgb (13.5-17.5) g/dL Hct (40.0-50.0) % MCV (80-95) fL MCH (27.0-33.0) pg MCHC (32.0-36.0) % RDW (11.8-14.1) % Plt Count (130-400) 10^3/uL MPV (8.0-11.0) fL Immature Gran % Neutrophils % Lymphocytes % Monocytes % Eosinophils % Basophils % Nucleated RBC % % Absolute Neutrophils (1.2-6.7) 10^3/uL Absolute Lymphocytes (1.2-3.4) 10^3/uL Absolute Monocytes (0.1-0.8) 10^3/uL Absolute Eosinophils (0.0-0.7) 10^3/uL Absolute Basophils (0.0-0.2) 10^3/uL D-Dimer (<500) ng/mlFEU Sodium (136-145) mmol/L Potassium (3.5-5.1) mmol/L Chloride (98-107) mmol/L Carbon Dioxide (21.0-32.0) mmol/L Anion Gap (3-11) mmol/L BUN (7-18) mg/dL Creatinine (0.70-1.30) mg/dL Estimated GFR/1.73 m2 (mL/min/1.73m2) Glucose (74-106) mg/dL Calcium (8.5-10.1) mg/dL Magnesium (1.8-2.4) mg/dL Total Bilirubin (0.2-1.0) mg/dL AST (15-37) U/L ALT (16-63) U/L Alkaline Phosphatase (46-116) U/L Troponin I (<0.06) ng/mL < 0.05 Total Protein (6.4-8.2) g/dL Albumin (3.4-5.0) g/dL PAWSS Have you Been Recently Intoxicated or Drunk Within the Last 30 days?: No Have you Ever Experienced Previous Episodes of Alcohol Withdrawal?: No Have you ever Experienced Withdrawal Seizures?: No Have you ever Experienced Delirium Tremens(DT)s?: No Have you ever undergone Alcohol Rehabilitation Treatment (i.e, inpt ot outpatient treatment programs)?: No Have you ever Experienced Blackouts?: No Have you ever Combined Alcohol with other Downers within the last 90 days?: No Have you ever Combined Alcohol with any other Substance of Abuse during the last 90 days?: No Positive Blood Alcohol level on Presentation? [PCS.BAL]: No Evidence of Increased Autonomic Activity (i.e. HR>120, tremor, sweating, agitation, nausea)?: No Result: 0
== END 2021-01-22 14:02 | disposition home or self-care (01) ==
PROVIDERS: Emergency Provider Student in an Organized Health Care Education/Training Program; PCP Nurse Practitioner
DX: R07.9 Chest pain, unspecified (principal)
CPT/HCPCS: 36415; 80053; 93005; 99284; 71045; 83735; 84484; 85025; 85379; 93010

== ENCOUNTER 2021-01-26 08:37 | Outpatient (CLI) | payer OTHER, SELFPAY ==
[2021-01-26 10:22] LABS: Calculated LDL 159 mg/dL (<100); Cholesterol 262 mg/dL (<200); HDL Cholesterol 55 mg/dL (40-60); TSH (W/Ref FT4) 1.83 uIU/mL (0.36-3.74); Triglyceride 243 mg/dL (<150)
== END 2021-01-26 08:38 | disposition home or self-care (01) ==
LOC: LBO 08:37
PROVIDERS: PCP Nurse Practitioner; Visit Provider Nurse Practitioner
DX: I10 Essential (primary) hypertension (principal); E78.5 Hyperlipidemia, unspecified; Z12.5 Encounter for screening for malignant neoplasm of prostate
CPT/HCPCS: 36415; 80061; 84153; 84443

== ENCOUNTER 2021-02-01 01:28 | Outpatient (CLI) | payer OTHER, SELFPAY ==
--- NOTE | 2021-02-01 09:00 | ETT_ITS ---
APPROVED REPORT Exam: Exercise Treadmill Patient Location: Out-Patient Room/Bed: Stress Nurse: Dainta Suazo RN Ordering Provider:DERIAN TILLEY, Contact Number: BMI: 32.07 Baseline Rhythm: Sinus Rhythm/1DHB Indications: Chest Pain Medical History Medical History: HLD, Chest pain Cardiac Medications: Atorvastatin (prescribed but not yet started) Allergies: No known drug allergies Cardiac Risk Factors: Diabetes (non-insulin), HTN, Hyperlipidemia Previous Cardiac Procedures: None Pretest Chest Pain Characteristics: No chest pain Exercise History: Physically active Physical Disabilities: None Lung Sounds: Clear to auscultation Heart Sounds: Regular, Regular Stress Test Details Test: Exercise stress testing was performed using a Maxwell protocol. Rest Stress HR Resting HR Supine: 60 bpm Max Heart Rate (APMHR): 167 bpm Resting HR Standin bpm Target HR (85% APMHR): 141 bpm Max HR Achieved: 164 bpm % of APMHR: 98 Recovery HR: 99 bpm HR response to stress: Normal HR response to stress BP Resting BP Supine: 168/86 mmHg Resting BP Standin/82 mmHg Max BP: 198/82 mmHg Recovery BP: 164/78 mmHg BP response to stress: Normal blood pressure response to stress. ECG Resting ECst degree AV block, Sinus Rhythm Ectopy: occasional PVC Stress ECG: Sinus Tachycardia ST Change: No significant ST segment changes noted Arrhythmia: frequent PVCs Recovery ECG: Sinus Rhythm, 1st degree AV block Recovery ST Change: No significant ST segment changes noted Recovery Arrhythmia: PVCs, PACs Clinical Reason for Termination: Fatigue Stress Symptoms: Leg Fatigue Exercise duration: 16 min00 sec Highest Stage Reached: Stage 6: 5.5 mph at 20% grade. Exercise capacity: 15.92 METs Rosales Treadmill Score: 12 Rate Pressure Product: [id number] Stress ECG Conclusion 1. Resting electrocardiogram showed borderline first-degree AV block 2. Patient exercised on the Maxwell protocol and completed a workload of 15.92 METS, exercising into st age . Above average exercise capacity for age 3. Mild resting hypertension. Normal heart rate and blood pressure response to exercise. Patient ac hieved 98% of predicted heart rate for age 4. Electrocardiographically there was no evidence of myocardial ischemia 5. Rare atrial and ventricular ectopic beats were noted Rosales Treadmill Score is 12 which is Low risk. Stress Test Summary STAGE Time (mins) Speed (mph) Grade (%) HR BP SYMPTOMS METS Supine 60 168/86 Standing 75 160/82 1 3 1.7 10 89 162/78 4.6 2 6 2.5 12 106 172/74 7 3 9 3.4 14 124 182/80 10.2 4 12 4.2 16 141 188/76 12.9 5 15 5.0 18 160 198/82 17.2 1 min recovery 150 188/80 3 min recovery 109 196/80 6 min recovery 99 164/78
== END 2021-02-01 01:48 ==
PROVIDERS: PCP Nurse Practitioner; Visit Provider Student in an Organized Health Care Education/Training Program
DX: R07.9 Chest pain, unspecified (principal); E11.9 Type 2 diabetes mellitus without complications; I10 Essential (primary) hypertension; E78.5 Hyperlipidemia, unspecified
CPT/HCPCS: 93017

== ENCOUNTER 2021-02-02 12:20 | Outpatient (REF) | payer OTHER, SELFPAY ==
[2021-02-02 23:29] LABS: Campylobacter PCR Negative (Negative); Salmonella PCR Negative (Negative); Shiga Toxin PCR Negative (Negative); Shigella/Enteroinvasive Ecoli Negative (Negative)
== END 2021-02-02 12:21 | disposition home or self-care (01) ==
LOC: LBN 12:20
PROVIDERS: PCP Nurse Practitioner; Visit Provider Nurse Practitioner
DX: R19.7 Diarrhea, unspecified (principal)
CPT/HCPCS: 87493; 87505; 87177

== ENCOUNTER 2021-05-12 01:39 | Outpatient (CLI) | payer OTHER, SELFPAY ==
[2021-05-12 10:29] LABS: Calculated LDL 106 mg/dL (<100); Cholesterol 197 mg/dL (<200); HDL Cholesterol 67 mg/dL (40-60); Triglyceride 122 mg/dL (<150)
== END 2021-05-12 01:40 | disposition home or self-care (01) ==
LOC: LBO 01:39
PROVIDERS: PCP Nurse Practitioner; Visit Provider Internal Medicine Cardiovascular Disease
DX: E78.89 Other lipoprotein metabolism disorders (principal)
CPT/HCPCS: 36415; 80061

== ENCOUNTER 2022-05-11 03:01 | Outpatient (CLI) | payer OTHER, SELFPAY ==
[2022-05-11 08:37] LABS: ALT 44 U/L (16-63); AST 25 U/L (15-37); Albumin 4.2 g/dL (3.4-5.0); Alkaline Phosphatase 72 U/L (46-116); Anion Gap 6.1 mmol/L (3-11); BUN 19 mg/dL (7-18); Bilirubin, Total 0.7 mg/dL (0.2-1.0); CO2 30.9 mmol/L (21.0-32.0); CREATININE 0.9 mg/dL (0.70-1.30); Calcium 9.1 mg/dL (8.5-10.1); Calculated LDL 82 mg/dL (<100); Chloride 105 mmol/L (98-107); Cholesterol 174 mg/dL (<200); Estimated GFR 101.49 (mL/min/1.73m2); Glucose 103 mg/dL (74-106); HDL Cholesterol 71 mg/dL (40-60); Potassium 4.2 mmol/L (3.5-5.1); Sodium 142 mmol/L (136-145); Total Protein 7.5 g/dL (6.4-8.2); Triglyceride 105 mg/dL (<150)
== END 2022-05-11 03:02 | disposition home or self-care (01) ==
PROVIDERS: PCP Nurse Practitioner; Visit Provider Nurse Practitioner
DX: E78.5 Hyperlipidemia, unspecified (principal); I10 Essential (primary) hypertension
CPT/HCPCS: 36415; 80053; 80061

== ENCOUNTER 2022-08-05 00:45 | Outpatient (CLI) | payer OTHER, SELFPAY ==
--- NOTE | 2022-08-05 | DI.MRI_ITS ---
Exam(s) MR IAC BRAIN WO/W EXAM: MR IAC BRAIN WO/W CLINICAL HISTORY: H90.42, SN HEARING LOSS LT,TINNITUS LT EAR,H93.12 TECHNIQUE: Multiplanar multisequence MRI of the brain was performed. Both noninfused and contrast i nfused sequences were performed. IV Contrast injected was 20 cc Dotarem. COMPARISON: No exams were available for comparison FINDINGS: CEREBRAL PARENCHYMA: No evidence of intracranial hemorrhage, mass effect nor shift of midline structu re. No extraaxial fluid collections. Ventricles are not enlarged nor shifted. There is no significant focal signal abnormality in the cerebellar hemispheres nor within the dario, m idbrain, and thalami. There is no abnormal signal abnormality in the periventricular white matter. DWI: No areas of restricted diffusion to suggest acute ischemic event. SWI: No microhemorrhages evident. There are no ring enhancing lesions in the brain. There is no abnormal meningeal enhancement. INTERNAL AUDITORY CANALS: No evidence of mass in the cerebellopontine angles and no evidence of enhan cing intra canalicular acoustic neuroma. On the sub millimeters slice sequence the 7th and 8th crani al nerves appear unremarkable within the internal auditory canals bilaterally. PITUITARY GLAND: No mass nor parasellar abnormality. No obvious abnormality in the cavernous sinuses. FLOW VOIDS: The expected flow void are noted. No evidence of obvious aneurysm nor obvious vascular ma lformation. PARANASAL SINUSES: The visualized paranasal sinuses appear unremarkable. ORBITS: No obvious abnormal findings. IMPRESSION: 1. No significant intracranial findings on this MRI scan of the brain. 2. No abnormal enhancing intracranial findings. There are no ring enhancing lesions in the brain and there is no abnormal meningeal enhancement. 3. No evidence of mass in the cerebellopontine angles and no evidence of intra canalicular acoustic neuroma/schwannoma. DATA REPOSITORY:
[2022-08-05] MEDS: Gadoterate meglumine 20 ML SYRINGE IVP (08:54)
[2022-08-05] MEDS: Normal Saline Flush 10 ML SYR IVP (08:54)
== END 2022-08-05 01:05 ==
LOC: DI 00:46
PROVIDERS: PCP Nurse Practitioner; Visit Provider Physician Assistant
DX: H90.42 Sensorineural hearing loss, unilateral, left ear, with unrestricted hearing on the contralateral side (principal); H93.12 Tinnitus, left ear
CPT/HCPCS: 70553

== ENCOUNTER → 2022-11-18 01:18 | Outpatient (CLI) | payer OTHER, SELFPAY ==
--- NOTE | 2022-11-18 08:56 | DI.RAD_ITS ---
Exam(s) XR HIP LT COMPLETE AP PELVIS EXAM: XR HIP LT COMPLETE AP PELVIS CLINICAL HISTORY: LT LEG WEAKNESS, LT HIP DISCOMFORT,R29.898. TECHNIQUE: 2D digital imaging was performed of the left hip. Two views were obtained. AP pelvis an d lateral left hip views were obtained. COMPARISON: No exams were available for comparison FINDINGS: BONES: No acute fracture is present. No bony destructive lesion is seen. JOINTS: No dislocation present. SOFT TISSUE: Normal. IMPRESSION: Unremarkable radiographs of the left hip. Unremarkable radiographs of the pelvis DATA REPOSITORY: RADIATION DOSE DELIVERED:
--- NOTE | 2022-11-18 08:56 | DI.RAD_ITS ---
Exam(s) XR LUMBAR SPINE COMPLETE EXAM: XR LUMBAR SPINE COMPLETE CLINICAL HISTORY: LOW BACK PAIN, left leg weakness, left hip discomfort,M54.50. TECHNIQUE: 2D digital imaging was performed of the lumbar spine. Five images were obtained. AP, la teral, right oblique, left oblique and L5-S1 spot views were obtained. COMPARISON: No exams were available for comparison FINDINGS: BONES: No fracture or destructive lesion. There are endplate osteophytes at multiple levels of the lux mbar spine. No facet hypertrophy identified. DISKS: Disc space narrowing is seen at T11-T12. ALIGNMENT: Lumbar spinal alignment is within normal limits. No spondylolysis or spondylolisthesis. SOFT TISSUE: Normal. IMPRESSION: Mild degenerative changes seen in the lumbar spine. DATA REPOSITORY: RADIATION DOSE DELIVERED:
== END ==
PROVIDERS: PCP Nurse Practitioner; Visit Provider Nurse Practitioner
DX: M51.36 Other intervertebral disc degeneration, lumbar region (principal)
CPT/HCPCS: 72110; 73502

== ENCOUNTER → 2023-02-24 00:25 | Outpatient (CLI) | payer OTHER, SELFPAY ==
--- NOTE | 2023-02-24 08:00 | DI.MRI_ITS ---
Exam(s) MR LUMBAR SPINE WO EXAM: MR LUMBAR SPINE WO CLINICAL HISTORY: back pain, left leg weakness, hx disc injury,ddd,m54.50,m51.36,[id number]. TECHNIQUE: Multiplanar multisequence MRI of the Lumbar spine was performed. COMPARISON: CR XR LUMBAR SPINE COMPLETE from 11/18/2022 FINDINGS: Bones: The last intervertebral disc space is designated the L5/S1 level for the numbering purpose of this ex amination. The vertebral body heights are well maintained. Alignment: Unremarkable. The marrow signal characteristics are unremarkable. Cord: The conus tip ends at the T12 level. It is of normal size and signal intensity. T12-L1: No focal disc herniation is present. No central spinal canal stenosis.No neural foraminal st enosis. L1-2: No focal disc herniation is present. No central spinal canal stenosis.No neural foraminal sten osis. L2-3: No focal disc herniation is present. No central spinal canal stenosis.No neural foraminal dara nosis. L3-4: Mild loss of disc height and mild disc bulging, eccentric toward the left. Small endplate oste ophytes projecting toward the left, causing severe left neural foraminal narrowing.No focal disc mg iation is present. No central spinal canal stenosis.No right neural foraminal stenosis. L4-5: No focal disc herniation is present. No central spinal canal stenosis.No neural foraminal sten osis. L5-S1: Moderate loss of disc height. Small endplate osteophytes and degenerative signal changes in t he inferior endplate of L5. Mild concentric disc bulging. No focal disc herniation is present. No central spinal canal stenosis.mild right neural foraminal stenosis. The visualized SI joints and sacrum are unremarkable. Soft tissues: The paraspinal soft tissues are unremarkable. IMPRESSION: No evidence of disc herniation. Severe left neural foraminal narrowing L3-4 secondary to endplate osteophyte encroachment. Mild right neural foraminal narrowing L5-S1. DATA REPOSITORY:
== END ==
PROVIDERS: PCP Nurse Practitioner; Visit Provider Nurse Practitioner
DX: M51.36 Other intervertebral disc degeneration, lumbar region (principal); M54.50 Low back pain, unspecified; R29.898 Other symptoms and signs involving the musculoskeletal system
CPT/HCPCS: 72148

== ENCOUNTER 2023-05-08 08:44 | Outpatient (CLI) | payer OTHER, SELFPAY | END 2023-05-08 08:45 | disposition home or self-care (01) | LOC: DI.CARD 08:45 | PROVIDERS: PCP Nurse Practitioner; Visit Provider Internal Medicine Cardiovascular Disease | CPT/HCPCS: 93010 ==

== ENCOUNTER 2023-05-17 04:49 | Outpatient (CLI) | payer OTHER, SELFPAY ==
[2023-05-17 11:31] LABS: ALT 43 U/L (16-63); AST 30 U/L (15-37); Albumin 4.2 g/dL (3.4-5.0); Alkaline Phosphatase 64 U/L (46-116); Anion Gap 7.5 mmol/L (3-11); BUN 21 mg/dL (7-18); Bilirubin, Total 0.8 mg/dL (0.2-1.0); CO2 30.5 mmol/L (21.0-32.0); CREATININE 1.1 mg/dL (0.70-1.30); Calcium 9.5 mg/dL (8.5-10.1); Calculated LDL 87 mg/dL (<100); Chloride 101 mmol/L (98-107); Cholesterol 174 mg/dL (<200); Estimated GFR 79.28 (mL/min/1.73m2); Glucose 98 mg/dL (74-106); HDL Cholesterol 69 mg/dL (40-60); Potassium 4.9 mmol/L (3.5-5.1); Sodium 139 mmol/L (136-145); Total Protein 7.7 g/dL (6.4-8.2); Triglyceride 91 mg/dL (<150)
[2023-05-17 17:35] LABS: PSA, Screening 0.9 ng/mL (<=3.5)
== END 2023-05-17 04:50 | disposition home or self-care (01) ==
LOC: LBO 04:49
PROVIDERS: PCP Nurse Practitioner; Visit Provider Nurse Practitioner
DX: I10 Essential (primary) hypertension (principal); E78.5 Hyperlipidemia, unspecified; Z12.5 Encounter for screening for malignant neoplasm of prostate
CPT/HCPCS: 36415; 80053; 80061; 84153

== ENCOUNTER → 2023-06-02 00:15 | Outpatient (CLI) | payer OTHER, SELFPAY ==
--- NOTE | 2023-06-02 | DI.MRI_ITS ---
Exam(s) MR UPPER JOINT LT WO EXAM: MR UPPER JOINT LT WO CLINICAL HISTORY: IMPINGEMENT SYNDROME LT SHOULDER, M75.42. TECHNIQUE: Multiplanar multisequence MRI was performed. COMPARISON: Plain films 05 April 2023 FINDINGS: BONES: There is no fracture or contusion pattern. Small degenerative cyst at superior humeral head. JOINTS:The acromioclavicular joint does not show significant inferior spurring. No visible impingeme nt. The glenohumeral joint shows a small amount of fluid. TENDONS: Supraspinatus: Unremarkable. Infraspinatus: Unremarkable. Subscapularis: Unremarkable. Teres [place]: Unremarkable. Biceps and [place]: Unremarkable. MUSCLES: Unremarkable. GLENOID LABRUM: No gross evidence of tear. Mild degenerative changes. SOFT TISSUES: Unremarkable. OTHER: Subacromial and subdeltoid bursae shows minimal edema.Small amount of fluid in the subcoracoi d bursa. . IMPRESSION: No evidence of rotator cuff tear. No evidence of impingement. DATA REPOSITORY:
== END ==
PROVIDERS: PCP Nurse Practitioner; Visit Provider Orthopaedic Surgery
DX: M75.42 Impingement syndrome of left shoulder (principal)
CPT/HCPCS: 73221

== ENCOUNTER 2023-08-14 08:59 | Emergency (ER) | payer OTHER, SELFPAY ==
[2023-08-14] VITALS (26 sets, daily range): BP systolic 136–158; BP diastolic 74–85; PULSE 48–69; RESP 12–25; TEMP 36.8; O2SAT 96–99
--- NOTE | 2023-08-14 09:00 | RT.EKG_ITS ---
APPROVED REPORT Exam: Resting ECG Reason for Exam: chest pain Patient Location: E HR:61 bpm ECG Measurements Heart Rate 61 AXIS [place] 201 P 54 QRSd 110 QRS 32 QT 405 T 24 QTc 410 Conclusion Sinus rhythm...normal P axis, V-rate 60- 99
--- NOTE | 2023-08-14 09:13 | ED.GENADUL_ITS ---
Discharge Plan Disposition Patient Disposition: Home Condition: Stable Discharge Details Clinical Impression: Anxiety, Left shoulder pain, Chest pain Primary Care Provider: Mayra Morris ED Provider: Litzy Toro Home Meds and New Rx's Prescriptions: Continued atorvastatin 10 mg tablet 10 mg PO DAILY Qty: 90 3RF losartan 100 mg tablet 100 mg PO DAILY Qty: 90 3RF ibuprofen 200 MG tablet 1 tab PO PRN coenzyme Q10 [H2Q CoQ10] 200 mg PO DAILY Discharge Instructions Instructions: Chest Pain (ED), Anxiety (ED), Shoulder Pain (ED) Additional Instructions: At this time there is no evidence for acute VA or heart attack. 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 Chest x-ray is within normal limits. Consider taking a chewable 81 mg baby aspirin daily or as directed by your PCP. Follow up with primary care provider in 3-5 days. Return to ED sooner if any worsening shortness of breath, radiating chest pain, swelling in your lower extremities that leaves a dent when you push your finger in, or concerns. Please take Tylenol with food every 4-6 hours as needed for pain and swelling. You may also follow-up with [facility] to discuss counseling. Referrals: [facility] [Provider Group] - 1 day (Call for counseling referral) Mayra Morris NP [Primary Care Provider] - 2 weeks Discharge Data Discharge Date/Time-TO BE ENTERED AT DEPARTURE: 08/14/23 12:39 HPI General Mode of arrival: ambulatory . Date/Time Provider Initiated Documentation: 08/14/23 09:03 . Limitations to Documentation: no limitations . Information obtained by: patient, RN notes reviewed and old records reviewed . HPI Narrative: 53-year-old male presents to the ER with chief complaint of left-sided chest pain which has been intermittent over the last week worse last night and at rest. He reports that he did a bike ride and lay down and the pain intensified he did take Tylenol at 4 AM. He did not take aspirin this morning. He describes his pain as tightness 1.5 out of 10. He is a former smoker ,past medical history of hypercholesterolemia, left shoulder injury, back pain. Of note he also did see a massage therapist on Monday, he does have some bruising from some suction therapy noted to his posterior back, pain is nonreproducible with palpation denies any nausea vomiting diaphoresis. He denies any shortness of breath. He does endorse some swelling in his lower extremities intermittently. Related Data Home Medications Medication Instructions Recorded Confirmed ibuprofen 200 mg tablet 1 tab PO PRN 07/05/13 08/14/23 atorvastatin 10 mg tablet 10 mg PO DAILY #90 tabs 11/08/22 08/14/23 losartan 100 mg tablet 100 mg PO DAILY #90 tabs 02/20/23 08/14/23 coenzyme Q10 200 mg PO DAILY 08/14/23 08/14/23 Previous Rx's Medication Instructions Recorded atorvastatin 10 mg tablet 10 mg PO DAILY #90 tabs 11/08/22 losartan 100 mg tablet 100 mg PO DAILY #90 tabs 02/20/23 Allergies Allergy/AdvReac Type Severity Reaction Status Date / Time No Known Allergies Allergy Verified 08/14/23 09:06 General Stated Complaint: Chest Pain LEOBARDO: 2 Review of Systems All systems reviewed & are unremarkable except as noted in HPI and below Cardiovascular Cardiovascular: Reports chest pain, Reports leg edema and Denies dyspnea Respiratory Respiratory: Denies cough and Denies dyspnea Gastrointestinal Gastrointestinal: Denies diarrhea, Denies nausea and Denies vomiting Exam Narrative Exam Narrative: Constitutional: Alert and oriented x3. Appears stated age. Normal body habitus. Head: Normocephalic, no trauma. Eyes: Pupils PERRL, Eyelids symmetrical without lesions, discharge, or swelling. ENT: External ear normal to inspection, no mastoid TTP, swelling, or erythema, Nasal turbinates WNL, no nasal discharge. Normal dentition, Chest: RRR, Normal S1, S2, distal pulses intact. No edema noted in bilateral lower extremities, EKG shows sinus rhythm, no STEMI Resp: Lungs clear to auscultation bilaterally, no wheezes, rales, or rhonchi. Abdomen: Soft, non-distended, Musculoskeletal: Normal gait, Moves all 4 extremities without difficulty. Skin: Bruising noted to left posterior upper thoracic area, see HPI. Capillary refill less than 2 sec. Neurologic: Cranial nerves II-XII intact. Alert and oriented x 3. Motor: No deficits noted. Sensory: Intact bilaterally all 4 extremities. Hematologic/Lymphatic: No ecchymosis, no lymphadenopathy. Course Vital Signs Vital signs: Vital Signs Temperature 36.8 C 08/14/23 09:01 Pulse 63 08/14/23 09:01 Respiratory Rate 25 H 08/14/23 09:01 Blood Pressure 158/76 H 08/14/23 09:01 Pulse Oximetry 96 08/14/23 09:01 Temperature 36.8 C 08/14/23 09:01 Temperature Source Skin 08/14/23 09:01 Pulse 63 08/14/23 09:01 Respiratory Rate 20 08/14/23 09:08 Respiratory Effort Normal, Non-Labored 08/14/23 09:12 Respiratory Depth Normal 08/14/23 09:08 Respiratory Pattern Normal 08/14/23 09:08 Blood Pressure 158/76 H 08/14/23 09:01 Blood Pressure Position Sitting 08/14/23 09:01 Pulse Oximetry 96 08/14/23 09:01 Oxygen Delivery Method Room Air 08/14/23 09:01 Oxygen Flow Rate 0 08/14/23 09:01 Pain Level 1 08/14/23 09:01 Medical Decision Making 53-year-old male presents to the ER with chief complaint of left-sided chest pain which has been intermittent over the last week worse last night and at rest. He reports that he did a bike ride and lay down and the pain intensified he did take Tylenol at 4 AM. He did not take aspirin this morning. He describes his pain as tightness 1.5 out of 10. He is a former smoker ,past medical history of hypercholesterolemia, left shoulder injury, back pain. Of note he also did see a massage therapist on Monday, he does have some bruising from some suction therapy noted to his posterior back, pain is nonreproducible with palpation denies any nausea vomiting diaphoresis. He denies any shortness of breath. He does endorse some swelling in his lower extremities intermittently. EKG was reviewed by myself and Dr. Martha Caraballo ER attending, ER and old EKG available for review. No significant change noted. Please see official report. Workup ordered including CBC CMP serial troponins, PT PTT chest x-ray 324 mg aspirin. Will add on a proBNP due to patient report of intermittent also thank you leg swelling and a CK due to muscle cramps and patient being very active. 500 cc LR ordered, and UA. Differential diagnosis includes not limited to CAD, NSTEMI, PE, However, Wells score for PE 0 low risk therefore will not pursue CT chest imaging, musculoskeletal, previous shoulder injury exacerbation, rhabdomyolysis, electrolyte imbalance. Initial cardiac workup within normal limits, no leukocytosis no signs of infection, BUN slightly elevated at 26 creatinine 1.1 glucose 109, other electrolytes within normal limits initial troponin less than 50, proBNP 16 which is negative, chest x-ray is within normal limits, Pending serial troponin, patient is requesting something for his shoulder tightness and pain which has improved slightly after the 324 mg of aspirin, 15 mg of ketorolac ordered. CK also within normal limits. Repeat EKG obtained, patient reports improvement of his left-sided shoulder pain and chest pain. No significant change noted. Pending serial troponin. Serial troponin within normal limits, patient to be discharged home with follow- up care instruction to follow-up with PCP or cardiology for outpatient stress test. Given strict return instructions verbalized understanding. Patient hemodynamically stable throughout the remainder of her stay ambulatory upon discharge. This text was generated using eTutoration system, please disregard any oddities of phrase or misspellings. Medical Records Medical records reviewed: Yes I reviewed the patient's medical records. Lab Data Lab results reviewed: Yes I reviewed the patient's lab results. ECG Data Prior ECG tracings: available for review Core Measures Measure exclusions: not indicated Quality:SDOH Health Related Social Needs: No Data to Display PFS All Active Problems (Updated 08/14/23 @ 12:27 by Litzy Toro NP) Chest pain (Acute) Left shoulder pain (Acute) Anxiety (Chronic) Other intervertebral disc degeneration, lumbar region (Acute ~03/2023) 04/05/23 [facility] Pain in left shoulder (Acute ~03/2023) 04/05/23 [facility] Hypertension (Chronic) Elevated blood pressure reading in office without diagnosis of hypertension (Acute) SARS-CoV-2 positive (Acute ~08/15/21) Elevated HDL (Acute) Chest pain (Acute) Abnormal auditory perception (Acute) Sensorineural hearing loss (SNHL) of left ear with unrestricted hearing of right ear (Acute) Tinnitus (Acute) Hyperlipidemia (Acute) Impacted cerumen of left ear (Acute) Elevated blood pressure reading in office with diagnosis of hypertension (Acute) Screening for cholesterol level (Acute) Travel within last 14 days (Acute) Diarrhea (Acute) Medical History Low back pain, unspecified 04/05/23 [facility] Family History Father Essential hypertension Hyperlipidemia Grandfather Essential hypertension Hyperlipidemia Grandmother Essential hypertension Hyperlipidemia Mother No problems noted. Social History Smoking/Tobacco Use Status: Former Tobacco Use Tobacco: How many years used: 15 Smoking risk assessment performed?: Yes Alcohol Intake: current Alcohol Intake frequency: a few times a week Alcohol type: beer, wine, hard liquor and other Drug use: Never Substance use type: does not use Adopted: No Household members: spouse Housing: house Pets and animals: Yes Pets and animals: dog(s) Do you think of yourself as: straight/heterosexual Current gender identity: male What is your relationship status?: Panel score (0-1 are the most socially isolated patients): 1 What type of physical activity do you participate in: bicycling, regular exercise, weight lifting and resistance training Duration: 45-60 minutes/day Frequency: 5-6 times per week Do you feel safe at home: Yes
[2023-08-14] MEDS: Aspirin 81 MG CHEW 324 MG CH (09:17)
[2023-08-14 09:21] LABS: Absolute Basophil Count 0.02 10^3/uL (0.0-0.2); Absolute Eosinophil Count 0.02 10^3/uL (0.0-0.7); Absolute Lymphocyte Count 1.31 10^3/uL (1.2-3.4); Absolute Monocyte Count 0.47 10^3/uL (0.1-0.8); Absolute Neutrophil Count 2.95 10^3/uL (1.2-6.7); Basophils % 0.4 %; Eosinophils % 0.4 %; HCT 45.5 % (40.0-50.0); HGB 15.4 g/dL (13.5-17.5); Lymphocytes % 27.5 %; MCH 30.2 pg (27.0-33.0); MCHC 33.8 % (32.0-36.0); MCV 89 fL (80-95); MPV 9.3 fL (8.0-11.0); Monocytes % 9.9 %; Neutrophils % 61.8 %; Platelet Count 208 10^3/uL (130-400); RDW 11.9 % (11.8-14.1); RDW-SD 39.1 fL; WBC 4.77 10^3/uL (4.4-10.8)
--- NOTE | 2023-08-14 09:32 | DI.RAD_ITS ---
Exam(s) XR PORTABLE CHEST AP EXAM: XR PORTABLE CHEST AP CLINICAL HISTORY: Chest Pain TECHNIQUE: 2D digital imaging was performed of the chest. One image was obtained. An AP view was ob tained. COMPARISON: CR XR PORTABLE CHEST AP from 01/22/2021 FINDINGS: MEDIASTINUM: Normal. HEART: Normal. PULMONARY VASCULATURE: Normal. LUNGS: Clear. PLEURAL SPACE: No pleural effusion or pneumothorax. BONE:Within normal limits for the patient's age. OTHER FINDINGS:Normal. IMPRESSION: No acute pulmonary findings. DATA REPOSITORY: RADIATION DOSE DELIVERED:
[2023-08-14 09:47] LABS: ALT 33 U/L (16-63); AST 20 U/L (15-37); Albumin 4.2 g/dL (3.4-5.0); Alkaline Phosphatase 57 U/L (46-116); Anion Gap 8.2 mmol/L (3-11); BUN 26 mg/dL (7-18); CO2 27.8 mmol/L (21.0-32.0); CREATININE 1.1 mg/dL (0.70-1.30); Calcium 9.3 mg/dL (8.5-10.1); Chloride 103 mmol/L (98-107); Creatine Kinase 142 U/L (39-308); Estimated GFR 79.28 (mL/min/1.73m2); Glucose 109 mg/dL (74-106); Magnesium 2.1 mg/dL (1.8-2.4); NT-proBNP 16 pg/mL (<300); Potassium 4.5 mmol/L (3.5-5.1); Sodium 139 mmol/L (136-145); Total Protein 7.3 g/dL (6.4-8.2); Troponin I < 50 ng/L (< or =60)
[2023-08-14] MEDS: Lactated Ringers 500 ML IV (09:55)
[2023-08-14] MEDS: Ketorolac 15 MG/ML VIAL IVP (10:20)
[2023-08-14 10:26] LABS: Bilirubin Negative (Negative); Blood Negative (Negative); Clarity Clear (Clear); Glucose Negative (Negative); Ketones Negative (Negative); Leukocyte Esterase Negative (Negative); Nitrite Negative (Negative); Urobilinogen 0.2 mg/dL (Up to 0.2)
--- NOTE | 2023-08-14 11:45 | RT.EKG_ITS ---
APPROVED REPORT Exam: Resting ECG Reason for Exam: repeat EKG Patient Location: E HR:50 bpm ECG Measurements Heart Rate 50 AXIS NH 223 P 46 QRSd 111 QRS 24 QT 439 T 14 QTc 400 Conclusion Sinus bradycardia...rate< 60 Prolonged NH interval...NH >210, V-rate 50- 90
[2023-08-14 12:14] LABS: Troponin I < 50 ng/L (< or =60)
== END 2023-08-14 12:39 | disposition home or self-care (01) ==
PROVIDERS: Emergency Provider Registered Nurse Emergency; PCP Nurse Practitioner
DX: R07.9 Chest pain, unspecified (principal); M25.512 Pain in left shoulder; F41.9 Anxiety disorder, unspecified
CPT/HCPCS: 36415; 80053; 82550; 93005; 96361; 96374; 99284; 71045; 81003; 83735; 83880; 84484; 85025; 93010; 99283; J1885

== ENCOUNTER → 2023-10-09 00:47 | Outpatient (CLI) | payer OTHER, SELFPAY ==
--- NOTE | 2023-10-09 05:45 | ETT_ITS ---
APPROVED REPORT Exam: Exercise Treadmill Patient Location: Out-Patient Room/Bed: Stress Nurse: Bebeto Christopher RN and Satnam Liz RN Ordering Provider:FRANCES STORY, Contact Number: [phone] BMI: 32.07 Baseline Rhythm: Sinus Rhythm. Comment: Rare PVC's. Indications: Left Sided Chest Pain. Medical History Medical History: Hyperlipidemia; Hypertension; GERD. Cardiac Medications: Atorvastatin; Losartan; Omeprazole. Allergies: None. Cardiac Risk Factors: Hyperlipidemia; Hypertension; Overweight. Previous Cardiac Procedures: None. Pretest Chest Pain Characteristics: None. Exercise History: Physically active. Physical Disabilities: None. Lung Sounds: Clear bilaterally throughout, anterior and posterior. Heart Sounds: S1 and S2 auscultated. Stress Test Details Test: Exercise stress testing was performed using a Maxwell protocol. Rest Stress HR Resting HR Supine: 69 bpm Max Heart Rate (APMHR): 165 bpm Resting HR Standin bpm Target HR (85% APMHR): 140 bpm Max HR Achieved: 150 bpm % of APMHR: 91 Recovery HR: 90 bpm HR response to stress: Normal HR response to stress. BP Resting BP Supine: 128/62 mmHg Resting BP Standin/82 mmHg Max BP: 198/56 mmHg Recovery BP: 128/72 mmHg BP response to stress: Normal blood pressure response to stress. ECG Resting ECG: Sinus Rhythm. Ectopy: Rare PVC's. Stress ECG: Sinus Tachycardia. ST Change: No significant ST segment changes noted Arrhythmia: None. Recovery ECG: Sinus Rhythm. Recovery ST Change: No significant ST segment changes noted Recovery Arrhythmia: None. Clinical Reason for Termination: Fatigue. Stress Symptoms: General Fatigue. Exercise duration: 13 min47 sec Highest Stage Reached: Stage 5: 5.0 mph at 18% grade. Exercise capacity: 14.70 METs Angina Score: None Rosales Treadmill Score: 10.0 Rate Pressure Product: [id number] Stress ECG Conclusion 1. Resting electrocardiogram was normal 2. Patient exercised on the Maxwell protocol completed workload of 14.7 METS 3. Normal heart rate and blood pressure response to exercise. The patient achieved 91% of predicted heart rate for age 4. There was no electrocardiographic evidence of myocardial ischemia 5. There were no significant dysrhythmias Rosales Treadmill Score is 10.0 which is Low risk. Stress Test Summary STAGE Time (mins) Speed (mph) Grade (%) HR BP SpO2 SYMPTOMS METS Supine 69 128/62 98 Standing 62 152/82 98 1 3 1.7 10 100 162/72 4.5 2 6 2.5 12 101 178/72 7 3 9 3.4 14 130 170/70 95 10 4 12 4.2 16 130 13 5 15 5.0 18 150 Pt. complaining of generalized fatigue. 15 1 min recovery 130 180/58 97 3 min recovery 100 198/56 6 min recovery 91 142/62 9 min recovery 90 128/72 96 All s/s resolved at this time. Pt. was conversing pleasantly with nursing staff upon leaving the Stress Lab. Pt. left ambulatory in no apparent distress.
== END ==
PROVIDERS: PCP Nurse Practitioner; Visit Provider Nurse Practitioner Family
DX: R07.9 Chest pain, unspecified (principal)
CPT/HCPCS: 93017

== ENCOUNTER 2024-09-20 01:00 | Outpatient (CLI) | payer OTHER, SELFPAY ==
[2024-09-20 09:37] LABS: Hemoglobin A1C 5.4 % (<5.7)
[2024-09-20 09:48] LABS: Creatine Kinase 138 U/L (39-308)
[2024-09-20 09:50] LABS: ALT 37 U/L (16-63); AST 22 U/L (15-37); Albumin 4.0 g/dL (3.4-5.0); Alkaline Phosphatase 64 U/L (46-116); Anion Gap 5.6 mmol/L (3-11); BUN 16 mg/dL (7-18); Bilirubin, Total 0.6 mg/dL (0.2-1.0); CO2 30.4 mmol/L (21.0-32.0); Calcium 8.8 mg/dL (8.5-10.1); Calculated LDL 66 mg/dL (<100); Chloride 105 mmol/L (98-107); Cholesterol 148 mg/dL (<200); Estimated GFR 88.33 (mL/min/1.73m2); Glucose 103 mg/dL (74-106); HDL Cholesterol 63 mg/dL (>or=40); Potassium 4.4 mmol/L (3.5-5.1); Sodium 141 mmol/L (136-145); Total Protein 7.4 g/dL (6.4-8.2); Triglyceride 96 mg/dL (<150)
[2024-09-20 18:40] LABS: PSA, Screening 1.2 ng/mL (<=3.5)
== END 2024-09-20 01:01 | disposition home or self-care (01) ==
LOC: LBO 01:00
PROVIDERS: PCP Nurse Practitioner; Visit Provider Nurse Practitioner Family
DX: E78.5 Hyperlipidemia, unspecified (principal); Z80.42 Family history of malignant neoplasm of prostate; I10 Essential (primary) hypertension; R73.09 Other abnormal glucose
CPT/HCPCS: 36415; 80053; 80061; 82550; 84153; 83036

== ENCOUNTER 2024-11-08 00:27 | Outpatient (CLI) | payer OTHER, SELFPAY ==
--- NOTE | 2024-11-08 06:45 | DI.MRI_ITS ---
Exam(s) MR LUMBAR SPINE WO EXAM: MR LUMBAR SPINE WO CLINICAL HISTORY: back pain,OTHER INTERVERTEBRAL DISC HERNIATION,M51.36. TECHNIQUE: Multiplanar multisequence MRI of the Lumbar spine was performed. COMPARISON: MR MR LUMBAR SPINE WO from 02/24/2023 FINDINGS: Bones: The last intervertebral disc space is designated the L5/S1 level for the numbering purpose of this examination. The vertebral body heights are well maintained. Alignment is satisfactory. There are degenerative endplate single changes in the lower thoracic and lumbar spine. The findings are most marked at T11-T12 and L5-S1. Cord: It is of normal size and signal intensity. T12-L1: No disc herniations or bulges are present. No central spinal canal or neural foraminal stenosis. L1-2: No disc herniations or bulges are present. No central spinal canal or neural foraminal stenosis. L2-3: No disc herniations or bulges are present. No central spinal canal or neural foraminal stenosis. L3-4: There is a mild diffuse disc bulge. There is no significant central spinal canal stenosis. There is mild narrowing of the neural foramen, left greater than right. L4-5: No disc herniations or bulges are present. No central spinal canal or neural foraminal stenosis. L5-S1: No disc herniations or bulges are present. There is a mild diffuse disc bulge. There is no significant central spinal canal stenosis. There is mild narrowing of the neural foramen bilaterally. Soft tissues: The visualized SI joints and sacrum are well maintained. The paraspinal soft tissues are unremarkable. IMPRESSION: 1. Degenerative changes in the lumbar spine. 2. There is mild narrowing of the neural foramen bilaterally at L3-4 and L5-S1. DATA REPOSITORY:
== END 2024-11-08 00:47 ==
LOC: DI 00:27
PROVIDERS: PCP Nurse Practitioner; Visit Provider Nurse Practitioner Family
DX: M51.360 Other intervertebral disc degeneration, lumbar region with discogenic back pain only (principal)
CPT/HCPCS: 72148

== ENCOUNTER 2024-12-13 04:35 | Outpatient (CLI) | payer OTHER, SELFPAY ==
--- NOTE | 2024-12-13 06:45 | DI.MRI_ITS ---
Exam(s) MR IAC BRAIN WO/W EXAM: MR IAC BRAIN WO/W CLINICAL HISTORY: Asymmetric SN hearing loss,LT,LT TINNITUS,H93.12,H91.22,H90.42 TECHNIQUE: Multiplanar multisequence MRI of the brain was performed. Both noninfused and contrast infused sequences were performed. IAC protocol was utilized. IV Contrast injected was 20 cc Dotarem. COMPARISON: MR MR IAC BRAIN WO/W from 08/05/2022 FINDINGS: CEREBRAL PARENCHYMA: No evidence of intracranial hemorrhage, mass effect nor shift of midline structure. No extraaxial fluid collections. Ventricles are not enlarged nor shifted. There is no significant focal signal abnormality in the cerebellar hemispheres nor within the dario, midbrain, and thalami. There is no significant abnormal signal abnormality in the periventricular white matter. No evidence of demyelinating disease. 2 small foci of FLAIR bright signal abnormality, 1 in each side of the supra ventricular white matter are unchanged from 2022. These are nonspecific findings. DWI: No areas of restricted diffusion to suggest acute ischemic event. SWI: No microhemorrhages evident. There are no ring enhancing lesions in the brain. There is no abnormal meningeal enhancement. INTERNAL AUDITORY CANALS: There is no evidence of mass in the cerebellopontine angles and no evidence of enhancing intra canalicular acoustic neuroma. On the sub millimeter slice sequences the 7 and 8th cranial nerves appear unremarkable within the bilateral internal auditory canals. PITUITARY GLAND: No mass nor parasellar abnormality. No obvious abnormality in the cavernous sinuses. FLOW VOIDS: The expected flow void are noted. No evidence of obvious aneurysm nor obvious vascular malformation. PARANASAL SINUSES: There is a small fluid level in left maxillary sinus and some mucosal thickening consistent with mild sinusitis. This finding was not evident on the prior MRI scan of July 2022. ORBITS: No obvious abnormal findings. IMPRESSION: 1. No significant intracranial findings on this MRI scan of the brain. 2. No abnormal enhancing intracranial findings. There are no ring enhancing lesions in the brain and there is no abnormal meningeal enhancement. 3. No evidence of mass in the cerebellopontine angles and no evidence of intra canalicular acoustic neuroma/schwannoma. 4. Essentially no significant change when compared to the prior MRI scan of 08/05/2022. DATA REPOSITORY:
[2024-12-13] MEDS: Gadoterate meglumine 20 ML SYRINGE IVP (13:57)
[2024-12-13] MEDS: Normal Saline Flush 10 ML SYR IVP (13:57)
== END 2024-12-13 04:55 ==
PROVIDERS: PCP Nurse Practitioner Family; Visit Provider Otolaryngology
DX: H90.42 Sensorineural hearing loss, unilateral, left ear, with unrestricted hearing on the contralateral side; H93.12 Tinnitus, left ear
CPT/HCPCS: 70553